=== PATIENT | male | born 1985 ===

== ENCOUNTER 2019-02-21 13:49 | Emergency (ER) | payer OTHER ==
[~2019-02-21] VITALS: Ht 175.3 cm; Wt 81.7 kg
[2019-02-21] MEDS ORDERED: MOTRIN IB200 MG PO (17:31)
== END 2019-02-21 17:54 | disposition home or self-care (01) ==
LOC: ER 13:49
DX: R07.89 Other chest pain (principal); M79.89 Other specified soft tissue disorders; F17.200 Nicotine dependence, unspecified, uncomplicated
CPT/HCPCS: 36415; 71046; 93005; 93010; 99283-25